=== PATIENT | female | born 1955 | race Hispanic/Latino ===

== ENCOUNTER 2017-01-30 09:01 | Outpatient (CLI) | payer BC ==
--- NOTE | 2017-01-30 10:10 | Mammography Report ---
Bilateral digital screening mammogram with CAD. Comparison study is dated November 24, 2015. Findings: There are scattered fibroglandular elements. There is scattered radiographically benign calcifications in both breasts with no significant interval change since the previous study. No masses or architectural distortion. Impression: Stable benign findings. BI-RADS code: 2. Recommendation: Annual screening.
== END 2017-01-30 09:02 | disposition home or self-care (01) ==
LOC: SPVWC 09:01
PROVIDERS: ATTEND Obstetrics & Gynecology
DX: Z12.31 Encounter for screening mammogram for malignant neoplasm of breast (principal)
CPT/HCPCS: 77067; G0202